=== PATIENT | female | born 1975 | race Caucasian/White ===

== ENCOUNTER 2018-01-28 18:08 | Emergency (ER) | payer MEDICAID | END 2018-01-28 20:21 | disposition home or self-care (01) | LOC: FTE 18:08 | DX: M79.1 Myalgia (principal) | CPT/HCPCS: 99282; Z7502 ==

== ENCOUNTER 2018-10-10 11:17 | Emergency (ER) | payer MEDICAID | END 2018-10-10 12:02 | disposition home or self-care (01) | LOC: FTE 11:17 | DX: H60.502 Unspecified acute noninfective otitis externa, left ear (principal) | CPT/HCPCS: 99283; Z7502 ==